=== PATIENT | female | born 1955 | race Caucasian/White ===

== ENCOUNTER 2019-04-01 06:47 | Day surgery (SDC) | payer OTHER ==
[~2019-04-01] VITALS: Ht 160 cm; Wt 79.4 kg
[~2019-04-01 06:47] MED LIST: ALENDRONATE SOD10 MG PO; BACTRIM DS1 TAB OR; EQL IBUPROFEN200 MG PO; PRILOSEC OTC20 MG OR; ZPAK PO
[2019-04-01 09:37] VITALS: BP 106/60
== END 2019-04-01 11:05 | disposition home or self-care (01) | DRG 951 ==
LOC: ENDO 06:47
PROVIDERS: ATTEND Internal Medicine Gastroenterology
PROC: 0DBK8ZX Excision of Ascending Colon, Via Natural or Artificial Opening Endoscopic, Diagnostic (ICD-10-PCS; principal; 2019-04-01)
DX: Z12.11 Encounter for screening for malignant neoplasm of colon (principal); D12.2 Benign neoplasm of ascending colon; K57.30 Diverticulosis of large intestine without perforation or abscess without bleeding; K64.4 Residual hemorrhoidal skin tags; K64.8 Other hemorrhoids

== ENCOUNTER 2024-05-16 06:36 | Day surgery (SDC) | payer OTHER ==
[~2024-05-16] VITALS: Ht 160 cm; Wt 87.1 kg
[~2024-05-16 06:36] MED LIST changes: +PROBIOTI2; +TYLENOL500 MG PO
[2024-05-16] MEDS ORDERED: LACTATED RINGER'S 1,000 ML IV ONE (06:38)
[2024-05-16] MEDS ORDERED: FAMOTIDINE 10MG/ML 2ML SDV IV ONE (06:38)
[2024-05-16 08:28] VITALS: BP 132/80
[2024-05-16] MEDS ORDERED: PROPOFOL 200 MG/20 ML VIAL IV ONE (16:29)
[2024-05-16] MEDS ORDERED: GLYCOPYRROLATE 0.2 MG/ML IV ONE (16:29)
[2024-05-16] MEDS ORDERED: LIDOCAINE HCL 2% 2ML SDV IV ONE (16:29)
== END 2024-05-16 07:47 | disposition home or self-care (01) | DRG 392 ==
LOC: ORM 06:36
PROVIDERS: ATTEND Internal Medicine Gastroenterology
PROC: 0DJD8ZZ Inspection of Lower Intestinal Tract, Via Natural or Artificial Opening Endoscopic (ICD-10-PCS; principal; 2024-05-16)
DX: R19.5 Other fecal abnormalities (principal); K57.30 Diverticulosis of large intestine without perforation or abscess without bleeding; K64.8 Other hemorrhoids; Z86.010 Personal history of colon polyps; Z80.0 Family history of malignant neoplasm of digestive organs; Z87.891 Personal history of nicotine dependence